=== PATIENT | female | born 1975 | race Asian ===

== ENCOUNTER → 2018-05-22 | Outpatient (CLI) | payer OTHER ==
[~2018-05-22] MED LIST: GASTROGRAFIN SOLUTION 30ML (Q9963) As Ordered; ISOVUE-370 76% 100ML VIAL (Q9967) As Ordered
== END ==
LOC: M RAD 13:51
DX: N28.1 Cyst of kidney, acquired (principal)
CPT/HCPCS: Q9963

== ENCOUNTER → 2018-07-03 | Outpatient (CLI) | payer OTHER ==
[~2018-07-03] MED LIST changes: +E-Z-GAS II EFFERVESCENT PACKET (SODIUM BICARB./CITRIC ACID/SIMETHICONE) As Ordered ONE; +E-Z-HD 98% w/w 340GM SUSP BTL As Ordered ONE; +E-Z-PAQUE 96% w/w SUSP 176GM BTL As Ordered ONE; -GASTROGRAFIN SOLUTION 30ML (Q9963) As Ordered; -ISOVUE-370 76% 100ML VIAL (Q9967) As Ordered
--- NOTE | 2018-07-03 20:32 | REP ---
Esophagram The procedure was performed under the direct supervision of Dr. Marquez. The images were reviewed with Dr. Marquez. 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 The superior mediastinal structures are midline. The heart size is within normal limits. The lungs are clear. Liquid barium and gas producing granules were given in the erect position as well as liquid barium in the prone oblique positions in order to perform a double contrast esophagram examination. The oral and pharyngeal stages of deglutition are unremarkable. Esophageal transport is prompt and efficient and there is no esophagitis, stricture, mucosal ring or hiatal hernia. There is gastroesophageal reflux demonstrated to above the level of the brayan. Impression: There is gastroesophageal reflux demonstrated to above the level of the brayan, otherwise, unremarkable double contrast esophagram examination. 0.5 minutes of fluoro time was utilized for this procedure. Reviewed by AMOS Verduzco 07/03/2018 04:27 P Electronically Signed by Ant Marquez MD 07/03/2018 08:22 P
== END ==
LOC: M RAD 09:29
PROVIDERS: ATTEND Internal Medicine Gastroenterology
DX: R13.10 Dysphagia, unspecified (principal); R12 Heartburn

== ENCOUNTER → 2018-08-18 | Outpatient (REF) | payer OTHER ==
[~2018-08-18] MED LIST changes: +DEXI60CA2 PO; -E-Z-GAS II EFFERVESCENT PACKET (SODIUM BICARB./CITRIC ACID/SIMETHICONE) As Ordered ONE; -E-Z-HD 98% w/w 340GM SUSP BTL As Ordered ONE; -E-Z-PAQUE 96% w/w SUSP 176GM BTL As Ordered ONE; +LEVO88TA3 PO; +LINZ290C PO
== END ==
LOC: M SFHCLERA 12:18
PROVIDERS: ATTEND Physician Assistant
DX: R50.9 Fever, unspecified (principal)

== ENCOUNTER 2018-08-26 12:43 | Day surgery (SDC) | payer OTHER ==
[~2018-08-26] VITALS: Ht 175.3 cm; Wt 76.7 kg
[~2018-08-26 12:43] MED LIST changes: +LIDOCAINE 2% INJ 100 MG/5 ML SDV (FOR ANES.) As Ordered ONE; +NS 1,000 ML IV ONE; +PROPOFOL 200 MG/20 ML VIAL As Ordered ONE
--- NOTE | 2018-08-26 14:54 | ROOR ---
Patient Name: Rolando Topete Procedure Date: 08/26/2018 2:23 PM Date of : 1975 Age: 42 Room: [facility] Gender: Female Note Status: Finalized Procedure: Upper GI endoscopy Indications: Functional Dyspepsia, Dysphagia, Abdominal bloating, Diarrhea Providers: Sammy STAUFFER MD Referring MD: Marti GERMAN DO Requesting Provider: Medicines: Monitored Anesthesia Care Complications: No immediate complications. Procedure: Pre-Anesthesia Assessment: - The heart rate, respiratory rate, oxygen saturations, blood pressure, adequacy of pulmonary ventilation, and response to care were monitored throughout the procedure. The Endoscope was introduced through the mouth, and advanced to the third part of duodenum. The upper GI endoscopy was accomplished without difficulty. The patient tolerated the procedure well. Findings: The examined esophagus was normal. No endoscopic abnormality was evident in the esophagus to explain the patient's complaint of dysphagia. This was biopsied with a cold forceps for evaluation of eosinophilic esophagitis. Minimal inflammation was found in the gastric antrum. Biopsies were taken with a cold forceps for Helicobacter pylori testing. The exam of the stomach was otherwise normal. The examined duodenum was normal. Biopsies for histology were taken with a cold forceps for evaluation of celiac disease. Impression: - Normal esophagus. No endoscopic esophageal abnormality to explain patient's dysphagia. Biopsied. - Minimal gastritis. Biopsied. - The stomach was otherwise normal. - Normal examined duodenum. Biopsied. Recommendation: - Telephone endoscopist for pathology results in 2 weeks. - Use Dexilant (dexlansoprazole) 60 mg PO daily. - (the script was sent to your pharmacy on file) - Lactose free diet. - Follow an antireflux regimen. Sammy Stauffer MD Sammy STAUFFER MD 08/26/2018 2:54:14 PM This report has been signed electronically. Number of Addenda: 0 Note Initiated On: 08/26/2018 2:23 PM Estimated Blood Loss: Estimated blood loss: none.
--- NOTE | 2018-08-26 15:00 | ROOR ---
Patient Name: Rolando Topete Procedure Date: 08/26/2018 2:24 PM Date of : 1975 Age: 42 Room: [facility] Gender: Female Note Status: Finalized Procedure: Colonoscopy Indications: Irritable bowel syndrome with constipation, Mixed irritable bowel syndrome, Change in bowel habits Providers: Sammy STAUFFER MD Referring MD: Marti GERMAN DO Requesting Provider: Medicines: Monitored Anesthesia Care Complications: No immediate complications. Procedure: Pre-Anesthesia Assessment: - The heart rate, respiratory rate, oxygen saturations, blood pressure, adequacy of pulmonary ventilation, and response to care were monitored throughout the procedure. The Colonoscope was introduced through the anus and advanced to 10 cm into the ileum. The colonoscopy was performed without difficulty. The patient tolerated the procedure well. The quality of the bowel preparation was good. Findings: The perianal and digital rectal examinations were normal. Mild melanosis suggestive of laxative use was found in the entire colon. The entire examined colon appeared normal on direct and retroflexion views. The terminal ileum appeared normal. Impression: - Small internal hemorrhoids. - The entire colon is otherwise normal on direct and retroflexion views. - The examined portion of the ileum was normal. - No specimens collected. - (Irritable Bowel Syndrome/IBS suspected.) Recommendation: - Stop Linzess 290 mg, start Linzess 72 mg daily. (script sent to your pharmacy) - Use fiber, for example Citrucel, Fibercon, Konsyl or Metamucil. Sammy Stauffer MD Sammy STAUFFER MD 08/26/2018 3:00:39 PM This report has been signed electronically. Number of Addenda: 0 Note Initiated On: 08/26/2018 2:24 PM Estimated Blood Loss: Estimated blood loss: none.
[2018-08-26 15:30] VITALS: BP 105/66
== END 2018-08-26 15:42 | disposition home or self-care (01) ==
LOC: M OPP 12:43
PROVIDERS: ATTEND Internal Medicine Gastroenterology
DX: K63.89 Other specified diseases of intestine (principal); K64.8 Other hemorrhoids; K58.2 Mixed irritable bowel syndrome; K58.1 Irritable bowel syndrome with constipation; R13.10 Dysphagia, unspecified; K29.70 Gastritis, unspecified, without bleeding; K30 Functional dyspepsia; R14.0 Abdominal distension (gaseous); R19.7 Diarrhea, unspecified; E03.9 Hypothyroidism, unspecified; K21.9 Gastro-esophageal reflux disease without esophagitis; Z79.899 Other long term (current) drug therapy; Z80.0 Family history of malignant neoplasm of digestive organs

== ENCOUNTER → 2018-09-03 | Outpatient (CLI) | payer OTHER ==
[~2018-09-03] MED LIST changes: -LIDOCAINE 2% INJ 100 MG/5 ML SDV (FOR ANES.) As Ordered ONE; -NS 1,000 ML IV ONE; -PROPOFOL 200 MG/20 ML VIAL As Ordered ONE
[2018-09-03 15:19] LABS: FREE T4 1.34 NG/DL (0.76-1.46); THYROID STIMULATING HORMONE 1.24 uIU/ML (0.358-3.740)
== END ==
LOC: M SMT 10:49
PROVIDERS: ATTEND Physician Assistant
DX: E03.9 Hypothyroidism, unspecified (principal)

== ENCOUNTER → 2018-10-28 | Outpatient (CLI) | payer OTHER ==
[2018-10-29 14:39] LABS: HIV 1&2 SCREEN CENTAUR NEGATIVE (NEGATIVE); PROGESTERONE 13.73 NG/ML
[2018-10-31 00:06] LABS: HSV IgM TYPES 1&2 <0.91 Ratio (0.00-0.90); HSV TYPE I IgG SPECIFIC <0.91 index (0.00-0.90); HSV TYPE II IgG SPECIFIC 7.98 index (0.00-0.90)
== END ==
LOC: M SMT 11:24
PROVIDERS: ATTEND Physician Assistant
DX: N76.0 Acute vaginitis (principal); N95.1 Menopausal and female climacteric states

== ENCOUNTER → 2018-11-29 | Outpatient (CLI) | payer OTHER ==
--- NOTE | 2018-11-29 19:36 | REP ---
REASON: Pelvic pain and pressure. Secondary to the patient complains of pain bilateral ovarian Doppler was obtained. Transvesical and transvaginal imaging was obtained. The uterus measures 8.5 x 4.9 x 5.7 cm. The parenchymal echo pattern is within normal limits. The endometrial echo complex is within normal limits with a maximal thickness of 1.2 cm. The right ovary measures 1.7 x 1.5 x 1.6 cm and is within normal limits with an RI of 0.59. The left ovary measures 3.5 x 2.1 x 3.4 cm and is within normal limits with an RI of 0.56. There was evidence of a decompressing left ovarian follicle. Urinary bladder measures 10 x 6 x 10 cm. IMPRESSION:Pelvic ultrasonography is within normal limits. Electronically Signed by Beto Moreno DO 11/29/2018 07:50 P
--- NOTE | 2018-12-20 12:49 | REPMRS ---
Patient History The patient states she has not had a clinical breast exam in over a year. Family history of thyroid cancer at age 60 in mother, colorectal cancer in maternal uncle. Taking unspecified hormones for 2 years. 2D only. Digital Mammo Screening Bilat: November 29, 2018 - Exam #: [id number] Bilateral CC and MLO view(s) were taken. Technologist: Lalita Joseph, Technologist Prior study comparison: 2018, digital mammo screening bilat, [facility]. FINDINGS: The breast tissue is extremely dense which could obscure a lesion on mammography. There is no evidence of cancer on this mammogram. Assessment: BI-RADS/ACR category 2 mammogram. Benign Findings. Recommendation Routine screening mammogram of both breasts in 1 year (for women over age 40). This mammogram was interpreted with the aid of an FDA-approved computer-aided dectection system. Electronically Signed By: Jc Hess MD 12/20/18 [id number]
== END ==
LOC: M RAD 10:41
PROVIDERS: ATTEND Nurse Practitioner Women's Health
DX: Z12.31 Encounter for screening mammogram for malignant neoplasm of breast (principal); R10.2 Pelvic and perineal pain; Z80.8 Family history of malignant neoplasm of other organs or systems; Z79.818 Long term (current) use of other agents affecting estrogen receptors and estrogen levels

== ENCOUNTER → 2019-09-03 | Outpatient (CLI) | payer OTHER ==
[2019-09-03 11:52] LABS: BASO % 0.6 % (0.0-1.0); EOS # 0.2 10^3/uL (0.0-0.5); HEMATOCRIT 45.3 % (36.0-47.0); HEMOGLOBIN 14.9 g/dl (12.0-15.5); MEAN CORPUSCULAR HEMOGLOBIN 30.4 pg (27.0-33.0); MEAN CORPUSCULAR HGB CONC 32.9 g/dl (32.0-36.5); MEAN CORPUSCULAR VOLUME 92.4 fl (80.0-96.0); MONO # 0.4 10^3/uL (0.0-0.8); MONO % 7.5 % (0.0-5.0); NEUTROPHILS # 2.4 10^3/uL (1.5-8.5); NEUTROPHILS % 48.5 % (36.0-66.0); PLATELET COUNT, AUTOMATED 202 10^3/uL (150-450)
[2019-09-03 12:16] LABS: ALBUMIN 3.9 GM/DL (3.2-5.2); ALT/SGPT 22 U/L (12-78); BILIRUBIN,TOTAL 1.4 MG/DL (0.2-1.0); BLOOD UREA NITROGEN 9 MG/DL (7-18); CALCIUM LEVEL 8.5 MG/DL (8.5-10.1); CARBON DIOXIDE LEVEL 29 MEQ/L (21-32); CHLORIDE LEVEL 107 MEQ/L (98-107); CHOLESTEROL LEVEL 156 MG/DL (<200); CHOLESTEROL RISK RATIO 2.836 (<5); CREATININE FOR GFR 0.91 MG/DL (0.55-1.30); ESTRADIOL 96.7 PG/ML; FERRITIN 63 NG/ML (8-252); FREE T4 1.16 NG/DL (0.76-1.46); GLOMERULAR FILTRATION RATE > 60.0 (>58); GLUCOSE, FASTING 87 MG/DL (70-100); HDL CHOLESTEROL 55 MG/DL (>40); IRON (FE) 192 UG/DL (50-170); LDL CHOLESTEROL 69 MG/DL (<100); LUTEINIZING HORMONE 3.5 mIU/mL; NON-HDL-C 101 MG/DL; PERCENT SATURATION 76.8 % (13.2-45.0); POTASSIUM SERUM 4.2 MEQ/L (3.5-5.1); PROGESTERONE 3.49 NG/ML; SODIUM LEVEL 138 MEQ/L (136-145); TOTAL 25(OH) VITAMIN D 18.4 NG/ML (30.0-100.0); TOTAL IRON BINDING CAPACITY 250 UG/DL (250-450); TOTAL PROTEIN 7.3 GM/DL (6.4-8.2); TRIGLYCERIDES LEVEL 160 MG/DL (<150)
[2019-09-05 00:07] LABS: SEX HORMONE BINDING GLOBULIN 100.8 nmol/L (24.6-122.0); TESTOSTERONE FREE (DIRECT) 4.3 pg/mL (0.0-4.2)
== END ==
LOC: M PLALAB 09:06
PROVIDERS: ATTEND Physician Assistant
DX: R53.83 Other fatigue (principal); E03.9 Hypothyroidism, unspecified

== ENCOUNTER → 2020-03-31 | Outpatient (CLI) | payer OTHER ==
--- NOTE | 2020-03-31 11:06 | REPMRS ---
Patient History The patient states she had a clinical breast exam in February 2020.Family history of unknown cancer at age 60 in mother, colorectal cancer in maternal uncle. Taking unspecified hormones for 2 years. Digital Woman Screen Mammo: March 31, 2020 - Exam #: [id number] Bilateral CC and MLO view(s) were taken. Technologist: Codie Parks, Technologist Prior study comparison: November 29, 2018, bilateral digital mammo screening bilat, performed at [facility]. 2018, digital mammo screening bilat, performed at [facility]. FINDINGS: The breast tissue is heterogeneously dense. This may lower the sensitivity of mammography. The Volpara volumetric breast density category is: C. There are two needle biopsy marker clips in the left breast. There is a moderate amount of heterogeneously dense fibroglandular tissue which is fairly symmetric. There is no interval development of dominant mass, architectural distortion, or grouped microcalcification typical of malignancy. There has been no change in the appearance of the mammogram from the prior studies. 3-D tomosynthesis shows no additional findings. Assessment: BI-RADS/ACR category 2 mammogram. Benign Findings. Recommendation Routine screening mammogram of both breasts in 1 year (for women over age 40). This patient's Lifetime Breast Cancer RIsk is estimated at 10.9 %. This mammogram was interpreted with the aid of an FDA-approved computer-aided dectection system. Electronically Signed By: Tres Marquez MD 03/31/20 [id number]
== END ==
LOC: M WHC 09:29
PROVIDERS: ATTEND Obstetrics & Gynecology
DX: Z12.31 Encounter for screening mammogram for malignant neoplasm of breast (principal); Z80.0 Family history of malignant neoplasm of digestive organs